=== PATIENT | male | born 1970 | race Caucasian/White ===

== ENCOUNTER 2023-01-21 14:55 | Outpatient (CLI) | payer OTHER ==
[2023-01-21 15:47] LABS: #Basophils 0.1 10x3/uL (0.0-0.2); #Eosinphils 0.3 10x3/uL (0.0-0.5); #Monocytes 0.5 10x3/uL (0.0-1.1); #Neutrophils 3.9 10x3/uL (1.5-8.4); %Basophils 1.3 % (0.0-2.0); %Eosinophils 4.7 % (0.0-6.0); %Lymphocytes 30.3 % (18.0-47.0); %Neutrophils 56.3 % (40.0-75.0); Hematocrit 41.9 % (38.8-50.0); Hemoglobin 13.9 g/dL (13.5-17.5); Mean Corpuscular HGB CONC 33.2 g/dL (32.0-36.0); Mean Corpuscular Volume 87.3 fl (81.2-95.1); Mean Platelet Volume 10.4 fl (7.4-10.4); Platelet Count 165 10x3/uL (150-450)
[2023-01-21 16:14] LABS: Anion Gap 15 mmol/L (10-20); BUN (Urea Nitrogen) 15 mg/dL (8.4-25.7); Calc. Creatinine Clearance 0 mL/min (70-130); Carbon Dioxide 25 mmol/L (22-29); Chloride 102 mmol/L (98-107); Estimated GFR 91; Glucose 65 mg/dL (70-105); Potassium 4.2 mmol/L (3.5-5.1); Sodium 138 mmol/L (136-145)
== END 2023-01-21 14:56 | disposition home or self-care (01) ==
LOC: LABBT 14:55
PROVIDERS: ATTEND Orthopaedic Surgery
DX: Z01.812 Encounter for preprocedural laboratory examination (principal); S46.012A Strain of muscle(s) and tendon(s) of the rotator cuff of left shoulder, initial encounter
CPT/HCPCS: 80048; 85025

== ENCOUNTER 2023-01-26 06:56 | Day surgery (SDC) | payer OTHER ==
[2023-01-21 15:28] VITALS: BMI 49.5
[2023-01-26] MEDS ORDERED: Vancomycin (BATCH) 2 GM in Premix 1 BAG IVPB SCH (08:00)
[2023-01-26] MEDS ORDERED: Sodium Chloride 0.9% 100 ML ONE (08:02)
[2023-01-26] MEDS ORDERED: CEFAZOLIN 2 GM VIAL ONE (08:02)
[2023-01-26] MEDS ORDERED: fentaNYL 50 mcg/mL 1 mL Vial ONE (08:18)
[2023-01-26] MEDS ORDERED: Midazolam HCl 2 mg/2 ml Vial ONE (08:18)
[2023-01-26] MEDS ORDERED: Ropivacaine 0.2% HCl/PF 20 ML ONE (08:19)
[2023-01-26] MEDS ORDERED: Lidocaine 1% (PF) 30 ML VIAL ONE (08:19)
[2023-01-26] MEDS ORDERED: Ropivacaine 0.5% HCl/PF (150 MG/30 ML VIAL) ONE (08:19)
[2023-01-26] MEDS ORDERED: Acetaminophen 500 MG TAB ONE (09:08)
[2023-01-26] MEDS ORDERED: Scopolamine 1.5 mg/72 hour Patch ONE (09:12)
[2023-01-26] MEDS ORDERED: Zolpidem Tartrate 5 MG TAB PO PRN (09:45)
[2023-01-26] MEDS ORDERED: Ropivacaine 0.2% 550 ML 550 ML NERVE BLCK SCH (09:45)
[2023-01-26] MEDS ORDERED: traMADol HCl 50 MG TAB PO PRN ×2 (09:45)
[2023-01-26] MEDS ORDERED: Ondansetron PF 4 MG/2 ML Vial IVP PRN (09:45)
[2023-01-26] MEDS ORDERED: Promethazine HCl 25 MG/ML VIAL IM PRN (09:45)
[2023-01-26] MEDS ORDERED: HYDROcodone/Acetaminophen 10/325 mg Tablet PO PRN ×2 (09:45)
[2023-01-26] MEDS ORDERED: fentaNYL PF 100 MCG/2 ML SYRINGE ONE (10:22)
[2023-01-26] MEDS ORDERED: Ondansetron PF 4 MG/2 ML Vial ONE (10:25)
[2023-01-26] MEDS ORDERED: PROPOFOL 200 MG/20 ML VIAL ONE (10:25)
[2023-01-26] MEDS ORDERED: ePHEDrine Sulfate 50 MG/10 ML VIAL ONE (10:25)
[2023-01-26] MEDS ORDERED: Rocuronium Bromide 10 MG/ML (10ML VIAL) ONE (10:25)
[2023-01-26] MEDS ORDERED: Dexamethasone 20 MG/5 ML VIAL ONE (10:25)
[2023-01-26] MEDS ORDERED: Ketorolac Tromethamine 30 MG/ML VIAL IVP SCH (12:00)
[2023-01-26] MEDS ORDERED: SUGAMMADEX SODIUM 200 MG/2 ML VIAL ONE (12:29)
== END 2023-01-26 15:25 | disposition home or self-care (01) ==
LOC: SDC 06:56
PROVIDERS: ATTEND Orthopaedic Surgery
PROC: 0RNK0ZZ Release Left Shoulder Joint, Open Approach (ICD-10-PCS; principal; 2023-01-26)
PROC: 0LM20ZZ Reattachment of Left Shoulder Tendon, Open Approach (ICD-10-PCS; principal; 2023-01-26)
DX: S46.012A Strain of muscle(s) and tendon(s) of the rotator cuff of left shoulder, initial encounter (principal); E11.9 Type 2 diabetes mellitus without complications; E03.9 Hypothyroidism, unspecified; F32.A Depression, unspecified; E78.5 Hyperlipidemia, unspecified; Z79.890 Hormone replacement therapy; Z79.82 Long term (current) use of aspirin; Z79.899 Other long term (current) drug therapy; Z79.85 Long-term (current) use of injectable non-insulin antidiabetic drugs; W19.XXXA Unspecified fall, initial encounter
CPT/HCPCS: 36416; A4306; C1713; J1100; J2001; J2250; J2405; J2704; J2795; J3010; J3370; J3490